=== PATIENT | male | born 1975 | race African-American/Black ===

== ENCOUNTER 2019-01-26 19:55 | Emergency (ER) | payer SELFPAY | END 2019-01-26 21:26 | disposition home or self-care (01) | LOC: ERS 19:55 | DX: S42.022A Displaced fracture of shaft of left clavicle, initial encounter for closed fracture (principal); I10 Essential (primary) hypertension; Z87.891 Personal history of nicotine dependence; W18.30XA Fall on same level, unspecified, initial encounter | CPT/HCPCS: 99283 ==